=== PATIENT | male | born 1965 | race Caucasian/White ===

== ENCOUNTER 2025-02-05 11:59 | Observation (INO) | payer OTHER, SELFPAY ==
[2025-02-05] VITALS (28 sets, daily range): BP systolic 105–142; BP diastolic 55–75; PULSE 63–167; RESP 16–35; TEMP 36.7–36.9; O2SAT 97–100; BMI 24.0
--- NOTE | 2025-02-05 12:06 | DI.RAD.S_ITS ---
PROCEDURE: XR CHEST 1V INDICATIONS: Shortness of breath TECHNIQUE: One view of the chest was acquired. COMPARISON: None. FINDINGS: Surgical changes and devices: None. Lungs and pleura: Lungs are clear. No pleural effusions or pneumothorax. Mediastinum: Mediastinal contours appear normal. Heart size is normal. Bones and chest wall: No suspicious bony lesions. Overlying soft tissues appear unremarkable. IMPRESSION: No acute cardiopulmonary abnormality is seen. Dictated by: Lazaro Amaya M.D. on 02/05/2025 at 12:44 Approved by: Lazaro Amaya M.D. on 02/05/2025 at 12:44
--- NOTE | 2025-02-05 12:23 | EKG_ITS ---
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
[2025-02-05 12:26] LABS: Add Manual Diff / Slide Review NO; Basophils Absolute Auto 100 /uL (0-100); Basophils Percent Auto 0.3 % (0-2); Eosinophils Absolute Auto 0 /uL (0-450); Hematocrit 39.5 % (41-53); Lymphocytes Absolute Auto 1100 /uL (1100-4500); Lymphocytes Percent Auto 6.3 % (25-40); Mean Corpuscular HGB Conc 35.5 % (30-36); Mean Corpuscular Hemoglobin 35.1 PG (26-34); Mean Corpuscular Volume 99.1 fL (80-100); Monocytes Absolute Auto 1100 /uL (0-900); Monocytes Percent Auto 5.8 % (3-14); Neutrophils Absolute Auto 15900 /uL (1500-7000); Neutrophils Percent Auto 87.6 % (50-75); Platelet Count 197 X10^3/uL (150-400); Red Blood Cell Count 3.98 X10^6/uL (4.5-5.9); Red Cell Distribution Width 12.6 % (11.6-14.8); White Blood Cell Count 18.2 X10^3/uL (4.5-11.0)
[2025-02-05 12:32] LABS: INR 0.9 (0.9-1.3); Prothrombin Time 10.6 SECONDS (9.4-12.5)
[2025-02-05 12:37] LABS: Alanine Aminotransferase 36 IU/L (<50); Albumin 4.8 g/dL (3.5-5.0); Albumin Globulin Ratio 1.7 (1.0-2.8); Alkaline Phosphatase 66 U/L (38-126); Aspartate Aminotransferase 33 IU/L (17-59); BUN Creatinine Ratio 15.7 (6-22); Bilirubin Total 1.7 mg/dL (0.2-1.3); Blood Urea Nitrogen 65 mg/dL (9-20); Calcium 9.2 mg/dL (8.4-10.2); Carbon Dioxide 20 mmol/L (22-32); Chloride 93 mmol/L (98-107); Estimated Glomerular Filt Rate 16 mL/min (>60); Globulin 2.9 g/dL (1.7-4.1); Glucose 142 mg/dL (70-99); HEMOLYSIS < 15 (0-50); Potassium 4.8 mmol/L (3.4-5.1); Sodium 127 mmol/L (137-145); Total Protein 7.7 g/dL (6.3-8.2)
[2025-02-05 12:38] LABS: Lactate (Lactic Acid) 1.5 mmol/L (0.7-2.1)
[2025-02-05 12:49] LABS: NT-proBNP (BNP-Adult 18+) 162 pg/mL (<125); Troponin I < 0.012 ng/mL (0.01-0.034)
--- NOTE | 2025-02-05 13:07 | ED_ITS ---
HPI - SOB/Dyspnea <Gareth Toussaint, DO - Last Filed: 02/06/25 13:35> General Chief Complaint: Shortness of Breath/Dyspnea Stated Complaint: lightheaded, sob, sent by [place] Time Seen by Provider: 02/05/25 12:18 Source: patient Mode of arrival: Ambulatory Limitations: no limitations History of Present Illness HPI Narrative: 59-year-old gentleman history of high blood pressure, hld, and psoriasis presents with nonproductive cough dizziness and shortness of breath with exertion pressure washing started last week and then continued today came in for further evaluation today while working. He does say that his urine is dark yellow but he does keep hydrated. Patient denies syncope, fever, chills, body aches, nausea, vomiting, diarrhea, sorethroat, chest pain, abdominal pain, leg swelling. Other than what is stated 14 point review of system is negative. Related Data Allergies Allergy/AdvReac Type Severity Reaction Status Date / Time No Known Drug Allergies Allergy Verified 02/05/25 17:46 Review of Systems <Gareth Toussaint, DO - Last Filed: 02/06/25 13:35> Review of Systems ROS Unobtainable: All systems reviewed & are unremarkable except as noted in HPI and below Patient History <Gareth Toussaint, DO - Last Filed: 02/06/25 13:35> Social History household members: none Smoking Status: Former smoker Smoking Status: Former smoker tobacco type: cigarettes Alcohol type: beer Exam <Gareth Toussaint, DO - Last Filed: 02/06/25 13:35> Narrative Exam Narrative: GENERAL: [59] year old patient appears stated age. Well-developed patient, in mild distress. HEAD: Atraumatic. Normocephalic. EYES: Pupils equal round and reactive. Extraocular motions intact. No scleral icterus. No injection or drainage. ENT: Nose without bleeding, purulent drainage. Throat without erythema, tonsillar hypertrophy or exudate. Airway patent. NECK: Trachea midline. Non tender CARDIOVASCULAR: Regular rate and rhythm without murmurs, gallops, or rubs. RESPIRATORY: Clear to auscultation. Breath sounds equal bilaterally. No wheezes, rales, or rhonchi. GASTROINTESTINAL: Abdomen soft, non-tender, nondistended. EXTREMITIES: No edema or joint tenderness. BACK: Nontender without deformity or crepitance. No flank tenderness. NEURO: AOx3. GCS 15 nonfocal neuro exam SKIN: No rash or erythema of visible areas Initial Vital Signs Initial Vital Signs: Vital Signs Temperature 98.5 F 02/05/25 12:01 Pulse Rate 89 02/05/25 12:01 Respiratory Rate 18 02/05/25 12:01 Blood Pressure 121/55 L 02/05/25 12:01 Pulse Oximetry 99 02/05/25 12:01 Oxygen Delivery Method Room Air 02/05/25 12:01 <Indra Lopez MD - Last Filed: 02/06/25 05:09> Initial Vital Signs Initial Vital Signs: Vital Signs Temperature 98.5 F 02/05/25 12:01 Pulse Rate 89 02/05/25 12:01 Respiratory Rate 18 02/05/25 12:01 Blood Pressure 121/55 L 02/05/25 12:01 Pulse Oximetry 99 02/05/25 12:01 Oxygen Delivery Method Room Air 02/05/25 12:01 Course <Gareth Toussaint DO - Last Filed: 02/06/25 13:35> Orders Ordered: Acetaminophen (Acetaminophen 325 Mg Tablet) 650 mg PO Q6H PRN PRN Reason: Fever/Mild Pain (1-3) Heparin Sodium (Porcine) (Heparin 5,000 Unit/Ml Vial) 5,000 unit SUBCUT BID [facility] Last Admin: 02/06/25 08:19 Dose: 5,000 unit Documented By: Admin: 02/05/25 21:43 Dose: 5,000 unit Documented By: DYLON Sodium Chloride (Normal Saline 0.9%) 1,000 mls @ 150 mls/hr IV CONT FADY Last Infusion: 02/05/25 22:03 Dose: 150 mls/hr Documented By: Admin: 02/05/25 21:44 Dose: 150 mls/hr Documented By: Infusion: 02/05/25 15:52 Dose: Infused Documented By: Admin: 02/05/25 14:13 Dose: 150 mls/hr Documented By: ANGELINE Sodium Chloride (Normal Saline 0.9%) 1,000 mls @ 100 mls/hr IV CONT FADY Last Admin: 02/06/25 08:18 Dose: 100 mls/hr Documented By: Infusion: 02/06/25 07:02 Dose: Infused Documented By: Admin: 02/05/25 21:02 Dose: 100 mls/hr Documented By: CHRISTINA Naloxone HCl (Naloxone 0.4 Mg/Ml Vial) 0.2 mg IV Q2MIN PRN PRN Reason: Opiate Reversal Ondansetron HCl (Ondansetron 4 Mg/2 Ml Inj) 4 mg IV Q8HR PRN PRN Reason: Nausea And Vomiting Discontinued Medications Aspirin (Aspirin 81 Mg Chew Tab) 324 mg PO NOW ONE Stop: 02/05/25 13:09 Last Admin: 02/05/25 14:00 Dose: Not Given Documented By: ANGELINE Lactated Ringer's (Lactated Ringers) 1,000 mls @ 1,000 mls/hr IV BOLUS ONE Stop: 02/05/25 18:37 Last Infusion: 02/05/25 19:00 Dose: Infused Documented By: Admin: 02/05/25 17:47 Dose: 1,000 mls/hr Documented By: ANGELINE Vital Signs Vital signs: Vital Signs - 8 hr 02/05/25 13:30 02/05/25 13:30 02/05/25 13:43 Pulse Rate 79 90 Pulse Rate [Orthostatic Lying] Pulse Rate [Orthostatic Standing] Respiratory Rate 16 Blood Pressure 111/65 Blood Pressure [Orthostatic Lying] Blood Pressure [Orthostatic Sitting] Blood Pressure [Orthostatic Standing] Pulse Oximetry 99 98 Oxygen Delivery Method 02/05/25 13:43 02/05/25 14:00 02/05/25 14:00 Pulse Rate 79 Pulse Rate [Orthostatic Lying] Pulse Rate [Orthostatic Standing] Respiratory Rate Blood Pressure 134/71 120/56 L Blood Pressure [Orthostatic Lying] Blood Pressure [Orthostatic Sitting] Blood Pressure [Orthostatic Standing] Pulse Oximetry 99 Oxygen Delivery Method 02/05/25 14:30 02/05/25 14:30 02/05/25 14:47 Pulse Rate 78 Pulse Rate [Orthostatic Lying] Pulse Rate [Orthostatic Standing] Respiratory Rate Blood Pressure 120/60 124/65 Blood Pressure [Orthostatic Lying] Blood Pressure [Orthostatic Sitting] Blood Pressure [Orthostatic Standing] Pulse Oximetry 99 Oxygen Delivery Method 02/05/25 14:47 02/05/25 14:48 02/05/25 14:48 Pulse Rate 74 80 Pulse Rate [Orthostatic Lying] Pulse Rate [Orthostatic Standing] Respiratory Rate 25 H 23 Blood Pressure 125/72 Blood Pressure [Orthostatic Lying] Blood Pressure [Orthostatic Sitting] Blood Pressure [Orthostatic Standing] Pulse Oximetry 99 99 Oxygen Delivery Method 02/05/25 14:49 02/05/25 14:49 02/05/25 14:51 Pulse Rate 90 Pulse Rate [Orthostatic Lying] 74 Pulse Rate [Orthostatic Standing] 79 Respiratory Rate 25 H Blood Pressure 111/59 L Blood Pressure [Orthostatic Lying] 124/65 Blood Pressure [Orthostatic Sitting] 125/72 Blood Pressure [Orthostatic Standing] 111/59 L Pulse Oximetry 99 Oxygen Delivery Method 02/05/25 15:00 02/05/25 15:00 02/05/25 15:30 Pulse Rate 77 74 Pulse Rate [Orthostatic Lying] Pulse Rate [Orthostatic Standing] Respiratory Rate 25 H 22 Blood Pressure 123/70 Blood Pressure [Orthostatic Lying] Blood Pressure [Orthostatic Sitting] Blood Pressure [Orthostatic Standing] Pulse Oximetry 99 99 Oxygen Delivery Method 02/05/25 16:00 02/05/25 16:37 02/05/25 16:39 Pulse Rate 75 81 78 Pulse Rate [Orthostatic Lying] Pulse Rate [Orthostatic Standing] Respiratory Rate 35 H 27 H 17 Blood Pressure Blood Pressure [Orthostatic Lying] Blood Pressure [Orthostatic Sitting] Blood Pressure [Orthostatic Standing] Pulse Oximetry 99 99 99 Oxygen Delivery Method 02/05/25 16:39 02/05/25 17:00 02/05/25 17:00 Pulse Rate 74 Pulse Rate [Orthostatic Lying] Pulse Rate [Orthostatic Standing] Respiratory Rate 35 H Blood Pressure 127/71 126/68 Blood Pressure [Orthostatic Lying] Blood Pressure [Orthostatic Sitting] Blood Pressure [Orthostatic Standing] Pulse Oximetry 100 Oxygen Delivery Method 02/05/25 17:30 02/05/25 17:30 02/05/25 18:00 Pulse Rate 78 69 Pulse Rate [Orthostatic Lying] Pulse Rate [Orthostatic Standing] Respiratory Rate 30 H 19 Blood Pressure 142/70 H Blood Pressure [Orthostatic Lying] Blood Pressure [Orthostatic Sitting] Blood Pressure [Orthostatic Standing] Pulse Oximetry 99 100 Oxygen Delivery Method Room Air 02/05/25 18:00 02/05/25 18:30 02/05/25 19:00 Pulse Rate 79 92 H Pulse Rate [Orthostatic Lying] Pulse Rate [Orthostatic Standing] Respiratory Rate 18 20 Blood Pressure 139/75 Blood Pressure [Orthostatic Lying] Blood Pressure [Orthostatic Sitting] Blood Pressure [Orthostatic Standing] Pulse Oximetry Oxygen Delivery Method 02/05/25 19:30 Pulse Rate 88 Pulse Rate [Orthostatic Lying] Pulse Rate [Orthostatic Standing] Respiratory Rate 19 Blood Pressure Blood Pressure [Orthostatic Lying] Blood Pressure [Orthostatic Sitting] Blood Pressure [Orthostatic Standing] Pulse Oximetry Oxygen Delivery Method <Indra Lopez MD - Last Filed: 02/06/25 05:09> Orders Ordered: Acetaminophen (Acetaminophen 325 Mg Tablet) 650 mg PO Q6H PRN PRN Reason: Fever/Mild Pain (1-3) Heparin Sodium (Porcine) (Heparin 5,000 Unit/Ml Vial) 5,000 unit SUBCUT BID [facility] Last Admin: 02/06/25 08:19 Dose: 5,000 unit Documented By: Admin: 02/05/25 21:43 Dose: 5,000 unit Documented By: DYLON Sodium Chloride (Normal Saline 0.9%) 1,000 mls @ 150 mls/hr IV CONT [facility] Last Infusion: 02/05/25 22:03 Dose: 150 mls/hr Documented By: Admin: 02/05/25 21:44 Dose: 150 mls/hr Documented By: Infusion: 02/05/25 15:52 Dose: Infused Documented By: Admin: 02/05/25 14:13 Dose: 150 mls/hr Documented By: ANGELINE Sodium Chloride (Normal Saline 0.9%) 1,000 mls @ 100 mls/hr IV CONT [facility] Last Admin: 02/06/25 08:18 Dose: 100 mls/hr Documented By: Infusion: 02/06/25 07:02 Dose: Infused Documented By: Admin: 02/05/25 21:02 Dose: 100 mls/hr Documented By: CHRISTINA Naloxone HCl (Naloxone 0.4 Mg/Ml Vial) 0.2 mg IV Q2MIN PRN PRN Reason: Opiate Reversal Ondansetron HCl (Ondansetron 4 Mg/2 Ml Inj) 4 mg IV Q8HR PRN PRN Reason: Nausea And Vomiting Discontinued Medications Aspirin (Aspirin 81 Mg Chew Tab) 324 mg PO NOW ONE Stop: 02/05/25 13:09 Last Admin: 02/05/25 14:00 Dose: Not Given Documented By: ANGELINE Lactated Ringer's (Lactated Ringers) 1,000 mls @ 1,000 mls/hr IV BOLUS ONE Stop: 02/05/25 18:37 Last Infusion: 02/05/25 19:00 Dose: Infused Documented By: Admin: 02/05/25 17:47 Dose: 1,000 mls/hr Documented By: ANGELINE Vital Signs Vital signs: Vital Signs - 8 hr 02/05/25 13:30 02/05/25 13:30 02/05/25 13:43 Pulse Rate 79 90 Pulse Rate [Orthostatic Lying] Pulse Rate [Orthostatic Standing] Respiratory Rate 16 Blood Pressure 111/65 Blood Pressure [Orthostatic Lying] Blood Pressure [Orthostatic Sitting] Blood Pressure [Orthostatic Standing] Pulse Oximetry 99 98 Oxygen Delivery Method 02/05/25 13:43 02/05/25 14:00 02/05/25 14:00 Pulse Rate 79 Pulse Rate [Orthostatic Lying] Pulse Rate [Orthostatic Standing] Respiratory Rate Blood Pressure 134/71 120/56 L Blood Pressure [Orthostatic Lying] Blood Pressure [Orthostatic Sitting] Blood Pressure [Orthostatic Standing] Pulse Oximetry 99 Oxygen Delivery Method 02/05/25 14:30 02/05/25 14:30 02/05/25 14:47 Pulse Rate 78 Pulse Rate [Orthostatic Lying] Pulse Rate [Orthostatic Standing] Respiratory Rate Blood Pressure 120/60 124/65 Blood Pressure [Orthostatic Lying] Blood Pressure [Orthostatic Sitting] Blood Pressure [Orthostatic Standing] Pulse Oximetry 99 Oxygen Delivery Method 02/05/25 14:47 02/05/25 14:48 02/05/25 14:48 Pulse Rate 74 80 Pulse Rate [Orthostatic Lying] Pulse Rate [Orthostatic Standing] Respiratory Rate 25 H 23 Blood Pressure 125/72 Blood Pressure [Orthostatic Lying] Blood Pressure [Orthostatic Sitting] Blood Pressure [Orthostatic Standing] Pulse Oximetry 99 99 Oxygen Delivery Method 02/05/25 14:49 02/05/25 14:49 02/05/25 14:51 Pulse Rate 90 Pulse Rate [Orthostatic Lying] 74 Pulse Rate [Orthostatic Standing] 79 Respiratory Rate 25 H Blood Pressure 111/59 L Blood Pressure [Orthostatic Lying] 124/65 Blood Pressure [Orthostatic Sitting] 125/72 Blood Pressure [Orthostatic Standing] 111/59 L Pulse Oximetry 99 Oxygen Delivery Method 02/05/25 15:00 02/05/25 15:00 02/05/25 15:30 Pulse Rate 77 74 Pulse Rate [Orthostatic Lying] Pulse Rate [Orthostatic Standing] Respiratory Rate 25 H 22 Blood Pressure 123/70 Blood Pressure [Orthostatic Lying] Blood Pressure [Orthostatic Sitting] Blood Pressure [Orthostatic Standing] Pulse Oximetry 99 99 Oxygen Delivery Method 02/05/25 16:00 02/05/25 16:37 02/05/25 16:39 Pulse Rate 75 81 78 Pulse Rate [Orthostatic Lying] Pulse Rate [Orthostatic Standing] Respiratory Rate 35 H 27 H 17 Blood Pressure Blood Pressure [Orthostatic Lying] Blood Pressure [Orthostatic Sitting] Blood Pressure [Orthostatic Standing] Pulse Oximetry 99 99 99 Oxygen Delivery Method 02/05/25 16:39 02/05/25 17:00 02/05/25 17:00 Pulse Rate 74 Pulse Rate [Orthostatic Lying] Pulse Rate [Orthostatic Standing] Respiratory Rate 35 H Blood Pressure 127/71 126/68 Blood Pressure [Orthostatic Lying] Blood Pressure [Orthostatic Sitting] Blood Pressure [Orthostatic Standing] Pulse Oximetry 100 Oxygen Delivery Method 02/05/25 17:30 02/05/25 17:30 02/05/25 18:00 Pulse Rate 78 69 Pulse Rate [Orthostatic Lying] Pulse Rate [Orthostatic Standing] Respiratory Rate 30 H 19 Blood Pressure 142/70 H Blood Pressure [Orthostatic Lying] Blood Pressure [Orthostatic Sitting] Blood Pressure [Orthostatic Standing] Pulse Oximetry 99 100 Oxygen Delivery Method Room Air 02/05/25 18:00 02/05/25 18:30 02/05/25 19:00 Pulse Rate 79 92 H Pulse Rate [Orthostatic Lying] Pulse Rate [Orthostatic Standing] Respiratory Rate 18 20 Blood Pressure 139/75 Blood Pressure [Orthostatic Lying] Blood Pressure [Orthostatic Sitting] Blood Pressure [Orthostatic Standing] Pulse Oximetry Oxygen Delivery Method 02/05/25 19:30 Pulse Rate 88 Pulse Rate [Orthostatic Lying] Pulse Rate [Orthostatic Standing] Respiratory Rate 19 Blood Pressure Blood Pressure [Orthostatic Lying] Blood Pressure [Orthostatic Sitting] Blood Pressure [Orthostatic Standing] Pulse Oximetry Oxygen Delivery Method MDM - SOB/Dyspnea <Gareth Toussaint, DO - Last Filed: 02/06/25 13:35> Lab Data 02/06/25 05:50 02/06/25 05:50 Labs: Lab Results 02/05/25 02/05/25 02/05/25 Range/Units 12:18 14:10 14:30 WBC 18.2 H (4.5-11.0) X10^3/uL RBC 3.98 L (4.5-5.9) X10^6/uL Hgb 14.0 (13.5-17.5) g/dL Hct 39.5 L (41-53) % MCV 99.1 (80-100) fL MCH 35.1 H (26-34) PG MCHC 35.5 (30-36) % RDW 12.6 (11.6-14.8) % Plt Count 197 (150-400) X10^3/uL Neut % (Auto) 87.6 H (50-75) % Lymph % (Auto) 6.3 L (25-40) % [place] % (Auto) 5.8 (3-14) % Eos % (Auto) 0.0 L (2-4) % Baso % (Auto) 0.3 (0-2) % Neut # (Auto) 82329 H (5923-6002) /uL Lymph # (Auto) 1100 (4406-9900) /uL [place] # (Auto) 1100 H (0-900) /uL Eos # (Auto) 0 (0-450) /uL Baso # (Auto) 100 (0-100) /uL PT 10.6 (9.4-12.5) SECONDS INR 0.9 (0.9-1.3) Sodium 127 L (137-145) mmol/L Potassium 4.8 (3.4-5.1) mmol/L Chloride 93 L (98-107) mmol/L Carbon Dioxide 20 L (22-32) mmol/L BUN 65 H (9-20) mg/dL Creatinine 4.15 H (0.66-1.25) mg/dL Estimated GFR 16 L (>60) mL/min BUN/Creatinine Ratio 15.7 (6-22) Glucose 142 H (70-99) mg/dL Lactate 1.5 (0.7-2.1) mmol/L Calcium 9.2 (8.4-10.2) mg/dL Total Bilirubin 1.7 H (0.2-1.3) mg/dL AST 33 (17-59) IU/L ALT 36 (<50) IU/L Alkaline Phosphatase 66 (38-126) U/L Total Creatine Kinase 44 L (55-170) U/L Troponin I < 0.012 (0.01-0.034) ng/mL NT-Pro-B Natriuret Pep 162 H (<125) pg/mL Total Protein 7.7 (6.3-8.2) g/dL Albumin 4.8 (3.5-5.0) g/dL Globulin 2.9 (1.7-4.1) g/dL Albumin/Globulin Ratio 1.7 (1.0-2.8) Lipase 180 (23-300) U/L Procalcitonin 0.246 (<0.5) ng/mL Urine RBC 0-1/hpf (0-5/HPF) Urine WBC None seen (0-5/HPF) Ur Squamous Epith Cells 0-1 /hpf (0-5/HPF) Urine Bacteria None seen (None) Ur Culture Indicated? Cult not indicated Vol Urine Centrifuged 10ml (spun) SARS-CoV-2 (PCR) Negative (Negative) Influenza A (RT-PCR) Flu a negative (NEGATIVE) Influenza B (RT-PCR) Flu b negative (NEGATIVE) RSV (PCR) Negative (Negative) 02/05/25 Range/Units 18:50 WBC (4.5-11.0) X10^3/uL RBC (4.5-5.9) X10^6/uL Hgb (13.5-17.5) g/dL Hct (41-53) % MCV (80-100) fL MCH (26-34) PG MCHC (30-36) % RDW (11.6-14.8) % Plt Count (150-400) X10^3/uL Neut % (Auto) (50-75) % Lymph % (Auto) (25-40) % [place] % (Auto) (3-14) % Eos % (Auto) (2-4) % Baso % (Auto) (0-2) % Neut # (Auto) (0432-6454) /uL Lymph # (Auto) (3436-5334) /uL [place] # (Auto) (0-900) /uL Eos # (Auto) (0-450) /uL Baso # (Auto) (0-100) /uL PT (9.4-12.5) SECONDS INR (0.9-1.3) Sodium (137-145) mmol/L Potassium (3.4-5.1) mmol/L Chloride (98-107) mmol/L Carbon Dioxide (22-32) mmol/L BUN 57 H (9-20) mg/dL Creatinine 2.86 H (0.66-1.25) mg/dL Estimated GFR 24 L (>60) mL/min BUN/Creatinine Ratio 19.9 (6-22) Glucose (70-99) mg/dL Lactate (0.7-2.1) mmol/L Calcium (8.4-10.2) mg/dL Total Bilirubin (0.2-1.3) mg/dL AST (17-59) IU/L ALT (<50) IU/L Alkaline Phosphatase (38-126) U/L Total Creatine Kinase (55-170) U/L Troponin I (0.01-0.034) ng/mL NT-Pro-B Natriuret Pep (<125) pg/mL Total Protein (6.3-8.2) g/dL Albumin (3.5-5.0) g/dL Globulin (1.7-4.1) g/dL Albumin/Globulin Ratio (1.0-2.8) Lipase (23-300) U/L Procalcitonin (<0.5) ng/mL Urine RBC (0-5/HPF) Urine WBC (0-5/HPF) Ur Squamous Epith Cells (0-5/HPF) Urine Bacteria (None) Ur Culture Indicated? Vol Urine Centrifuged SARS-CoV-2 (PCR) (Negative) Influenza A (RT-PCR) (NEGATIVE) Influenza B (RT-PCR) (NEGATIVE) RSV (PCR) (Negative) Urine Dip Bedside Urine Glucose 1000 mg/dl Bedside Urine Bilirubin - Negative Bedside Urine Ketone - Negative Urine Specific [place] 1.005 Bedside Urine Occult Blood + Bedside Urine pH 6.0 Bedside Urine Protein - Negative Bedside Urine Urobilinogen - Negative Bedside Urine Nitrite - Negative Bedside Urine Leukocytes - Negative Esterase Imaging Data CT scan - abdomen/pelvis: Radiologist's Impression: : 1965 Acct:[id number] Age/Sex: 59 / M Date of Service: 02/05/25 Loc: ED Accession Number: [id number] Procedure: CT abdomen pelvis wo con Ordering Provider: Gareth Toussaint D.O. PROCEDURE: CT ABDOMEN PELVIS WO CON INDICATIONS: light headed TECHNIQUE: Axial sections were acquired from the lung bases to the pubic symphysis. Coronal and sagittal reformats were performed. For radiation dose reduction, the following was used: automated exposure control, adjustment of mA and/or kV according to patient size. COMPARISON: None. FINDINGS: Image quality: Diagnostic. Lower Chest: No significant findings. URINARY: Right Kidney: No stones or hydronephrosis. Right Ureter: No hydroureter. Left Kidney: No stones or hydronephrosis. Left Ureter: No hydroureter. Bladder: Normal wall thickness. No stones. ABDOMEN: Liver: No contour-deforming solid mass. Gallbladder: No radiopaque gallstones or wall thickening. Biliary ducts: No biliary dilation. Pancreas: No ductal dilation. Spleen: Size is within normal limits. Adrenal Glands: No adrenal nodules. Stomach and Bowel: Normal colonic caliber, without significant wall thickening. Mild diverticulosis without CT evidence of acute diverticulitis. Normal appendix. Peritoneum: No abnormal intraperitoneal fluid. No free air. Ventral Wall: No hernia. Abdominal Nodes: No enlarged retroperitoneal or mesenteric lymph nodes. Vessels: Aorta and inferior vena cava are normal in size. PELVIS: Pelvic Organs: Unremarkable. Pelvic Nodes: Unremarkable. Miscellaneous: No inguinal hernias are seen. Bones: Lumbar degenerative change. No aggressive osseous process. IMPRESSION: No acute abdominal process. Mild diverticulosis. Lumbar degenerative change Dictated by: Lazaro Amaya M.D. on 02/05/2025 at 16:49 Approved by: Lazaro Amaya M.D. on 02/05/2025 at 1 ECG Data Interpretation: NSR HR 77 TN 180 QRS [address]-t wave change No previous ekg to compare MDM Narrative Medical decision making narrative: All lab work vital signs nurse triage note medication list CT scan and previous ER visits in outpatient clinic visit note reviewed today. Patient given lactated Ringer's 1 L bolus x2 pending repeat BUN creatinine. Differential diagnosis includes heart failure, electrolyte derangement, PE, pneumonia, hydronephrosis, kidney stone. Case discussed with our in-house hospitalist who felt patient needed higher level care including Nephrology. Case signed out to Dr. Lopez at shift change pending final disposition. <Indra Lopez MD - Last Filed: 02/06/25 05:09> Lab Data Labs: Lab Results 02/05/25 02/05/25 02/05/25 Range/Units 12:18 14:10 14:30 WBC 18.2 H (4.5-11.0) X10^3/uL RBC 3.98 L (4.5-5.9) X10^6/uL Hgb 14.0 (13.5-17.5) g/dL Hct 39.5 L (41-53) % MCV 99.1 (80-100) fL MCH 35.1 H (26-34) PG MCHC 35.5 (30-36) % RDW 12.6 (11.6-14.8) % Plt Count 197 (150-400) X10^3/uL Neut % (Auto) 87.6 H (50-75) % Lymph % (Auto) 6.3 L (25-40) % [place] % (Auto) 5.8 (3-14) % Eos % (Auto) 0.0 L (2-4) % Baso % (Auto) 0.3 (0-2) % Neut # (Auto) 47138 H (9205-5614) /uL Lymph # (Auto) 1100 (1170-1500) /uL [place] # (Auto) 1100 H (0-900) /uL Eos # (Auto) 0 (0-450) /uL Baso # (Auto) 100 (0-100) /uL PT 10.6 (9.4-12.5) SECONDS INR 0.9 (0.9-1.3) Sodium 127 L (137-145) mmol/L Potassium 4.8 (3.4-5.1) mmol/L Chloride 93 L (98-107) mmol/L Carbon Dioxide 20 L (22-32) mmol/L BUN 65 H (9-20) mg/dL Creatinine 4.15 H (0.66-1.25) mg/dL Estimated GFR 16 L (>60) mL/min BUN/Creatinine Ratio 15.7 (6-22) Glucose 142 H (70-99) mg/dL Lactate 1.5 (0.7-2.1) mmol/L Calcium 9.2 (8.4-10.2) mg/dL Total Bilirubin 1.7 H (0.2-1.3) mg/dL AST 33 (17-59) IU/L ALT 36 (<50) IU/L Alkaline Phosphatase 66 (38-126) U/L Total Creatine Kinase 44 L (55-170) U/L Troponin I < 0.012 (0.01-0.034) ng/mL NT-Pro-B Natriuret Pep 162 H (<125) pg/mL Total Protein 7.7 (6.3-8.2) g/dL Albumin 4.8 (3.5-5.0) g/dL Globulin 2.9 (1.7-4.1) g/dL Albumin/Globulin Ratio 1.7 (1.0-2.8) Lipase 180 (23-300) U/L Procalcitonin 0.246 (<0.5) ng/mL Urine RBC 0-1/hpf (0-5/HPF) Urine WBC None seen (0-5/HPF) Ur Squamous Epith Cells 0-1 /hpf (0-5/HPF) Urine Bacteria None seen (None) Ur Culture Indicated? Cult not indicated Vol Urine Centrifuged 10ml (spun) SARS-CoV-2 (PCR) Negative (Negative) Influenza A (RT-PCR) Flu a negative (NEGATIVE) Influenza B (RT-PCR) Flu b negative (NEGATIVE) RSV (PCR) Negative (Negative) 02/05/25 Range/Units 18:50 WBC (4.5-11.0) X10^3/uL RBC (4.5-5.9) X10^6/uL Hgb (13.5-17.5) g/dL Hct (41-53) % MCV (80-100) fL MCH (26-34) PG MCHC (30-36) % RDW (11.6-14.8) % Plt Count (150-400) X10^3/uL Neut % (Auto) (50-75) % Lymph % (Auto) (25-40) % [place] % (Auto) (3-14) % Eos % (Auto) (2-4) % Baso % (Auto) (0-2) % Neut # (Auto) (7111-6551) /uL Lymph # (Auto) (8714-5368) /uL [place] # (Auto) (0-900) /uL Eos # (Auto) (0-450) /uL Baso # (Auto) (0-100) /uL PT (9.4-12.5) SECONDS INR (0.9-1.3) Sodium (137-145) mmol/L Potassium (3.4-5.1) mmol/L Chloride (98-107) mmol/L Carbon Dioxide (22-32) mmol/L BUN 57 H (9-20) mg/dL Creatinine 2.86 H (0.66-1.25) mg/dL Estimated GFR 24 L (>60) mL/min BUN/Creatinine Ratio 19.9 (6-22) Glucose (70-99) mg/dL Lactate (0.7-2.1) mmol/L Calcium (8.4-10.2) mg/dL Total Bilirubin (0.2-1.3) mg/dL AST (17-59) IU/L ALT (<50) IU/L Alkaline Phosphatase (38-126) U/L Total Creatine Kinase (55-170) U/L Troponin I (0.01-0.034) ng/mL NT-Pro-B Natriuret Pep (<125) pg/mL Total Protein (6.3-8.2) g/dL Albumin (3.5-5.0) g/dL Globulin (1.7-4.1) g/dL Albumin/Globulin Ratio (1.0-2.8) Lipase (23-300) U/L Procalcitonin (<0.5) ng/mL Urine RBC (0-5/HPF) Urine WBC (0-5/HPF) Ur Squamous Epith Cells (0-5/HPF) Urine Bacteria (None) Ur Culture Indicated? Vol Urine Centrifuged SARS-CoV-2 (PCR) (Negative) Influenza A (RT-PCR) (NEGATIVE) Influenza B (RT-PCR) (NEGATIVE) RSV (PCR) (Negative) Urine Dip Bedside Urine Glucose 1000 mg/dl Bedside Urine Bilirubin - Negative Bedside Urine Ketone - Negative Urine Specific Lowes 1.005 Bedside Urine Occult Blood + Bedside Urine pH 6.0 Bedside Urine Protein - Negative Bedside Urine Urobilinogen - Negative Bedside Urine Nitrite - Negative Bedside Urine Leukocytes - Negative Esterase MDM Narrative Medical decision making narrative: All lab work vital signs nurse triage note medication list CT scan and previous ER visits in outpatient clinic visit note reviewed today. Patient given lactated Ringer's 1 L bolus x2 pending repeat BUN creatinine. Differential diagnosis includes heart failure, electrolyte derangement, PE, pneumonia, hydronephrosis, kidney stone. Case discussed with our in-house hospitalist who felt patient needed higher level care including Nephrology. Case signed out to Dr. Lopez at shift change pending final disposition. 02/05/25, 1829, John. Sign-out from Dr. Dobbs. 59-year-old male with recent exertional dyspnea, labs sent showing WBC 18 with creatinine of 4 with no comparison labs, CT abdomen and pelvis showed no obstructive uropathy or other acute process, no Nephrology available here, hospitalist here recommends transfer to nephrology capable facility. UA negative. CXR negative. BNP negative. Troponin negative. EKG without obvious ischemic changes normal sinus rhythm. CPK normal. No beds [facility]. Dr Dobbs spoke with [facility] transfer center, awaiting call back. Assumed care. 1999, call back from [facility], their hospitalist apparently declined, they are full no beds, he has not established with [facility]. We will contact [facility] for alternate transfer options to Nephrology capable facilities. Repeat BNP shows improved BUN and creatinine, 65/4.15 decreased to 57/2.86, improved. Likely does not need transfer for Nephrology at this time, improving renal function. Urinalysis was negative, no mention of any urianry casts, and no pyuria or hematuria. CT Abdomen Pelvis imaging noncontrast showed no obstructive uropathy or renal lesions, no acute changes noted. We will discuss with hospitalist regarding admission. 2044, case discussed with hospitalist Dr Arias who accepts patient for admission Discharge Plan Departure Patient Disposition: Admitted As Inpatient Clinical Impression: HI (acute kidney injury), Leukocytosis Admit Date/Time: 02/05/25 20:56 Admit Provider: Db Arias
[2025-02-05] MEDS: SODIUM CHLORIDE 0.9% 1,000 ML 150 ML IV ×2 (14:13→21:44)
[2025-02-05 15:04] LABS: Lipase 180 U/L (23-300)
[2025-02-05 15:05] LABS: Procalcitonin 0.246 ng/mL (<0.5)
[2025-02-05 15:15] LABS: Influenza A - CEPHEID Flu A NEGATIVE (NEGATIVE); Influenza B - CEPHEID Flu B NEGATIVE (NEGATIVE); Respiratory Syncytial Virus Negative (Negative)
[2025-02-05 15:22] LABS: Bacteria Urine None Seen; Culture Indicated Urine Cult Not Indicated; RBC Urine 0-1/HPF (0-5/HPF); Squamous Epithelial Cell Urine 0-1 /HPF (0-5/HPF); Urine Volume 10mL (spun); WBC Urine None Seen (0-5/HPF)
[2025-02-05 15:31] LABS: COVID-19 CEPHEID 4-PLEX PCR Negative (Negative)
--- NOTE | 2025-02-05 16:05 | PM.CALLCOV.1 ---
Call Coverage Note Note Date of Patient Contact: 02/05/25 Narrative of Care Provided: 59 M with PMH of HTN who presents with shortness of breath and sensation of light headedness for 1 week. Medicine being asked about admission given his creatinine of >4. Patient needs further evaluation to help determine underlying etiology at this time prior to acceptance at [facility]. However, given his dyspnea on presentation and creatinine of 4 already he would be better served at a facility with nephrology consultation available. Recommend initial evaluation CT without contrast or ultrasound to rule out obstructive etiology, CK level formal UA with ability to detect blood (for myoglobinuria and possible rhabdo), and repeat BMP after fluids. As stated above at this time would recommend transfer to higher level facility. If an underlying explanation for his acute renal failure is more evident and can be managed at [facility], can discuss admission here in the near future. Home meds: lisinopril 40 mg, HCTZ 12.5 mg daily
[2025-02-05 16:13] LABS: Creatine Kinase 44 U/L (55-170)
--- NOTE | 2025-02-05 16:38 | DI.CT.S_ITS ---
PROCEDURE: CT ABDOMEN PELVIS WO CON INDICATIONS: light headed TECHNIQUE: Axial sections were acquired from the lung bases to the pubic symphysis. Coronal and sagittal reformats were performed. For radiation dose reduction, the following was used: automated exposure control, adjustment of mA and/or kV according to patient size. COMPARISON: None. FINDINGS: Image quality: Diagnostic. Lower Chest: No significant findings. URINARY: Right Kidney: No stones or hydronephrosis. Right Ureter: No hydroureter. Left Kidney: No stones or hydronephrosis. Left Ureter: No hydroureter. Bladder: Normal wall thickness. No stones. ABDOMEN: Liver: No contour-deforming solid mass. Gallbladder: No radiopaque gallstones or wall thickening. Biliary ducts: No biliary dilation. Pancreas: No ductal dilation. Spleen: Size is within normal limits. Adrenal Glands: No adrenal nodules. Stomach and Bowel: Normal colonic caliber, without significant wall thickening. Mild diverticulosis without CT evidence of acute diverticulitis. Normal appendix. Peritoneum: No abnormal intraperitoneal fluid. No free air. Ventral Wall: No hernia. Abdominal Nodes: No enlarged retroperitoneal or mesenteric lymph nodes. Vessels: Aorta and inferior vena cava are normal in size. PELVIS: Pelvic Organs: Unremarkable. Pelvic Nodes: Unremarkable. Miscellaneous: No inguinal hernias are seen. Bones: Lumbar degenerative change. No aggressive osseous process. IMPRESSION: No acute abdominal process. Mild diverticulosis. Lumbar degenerative change Dictated by: Lazaro Amaya M.D. on 02/05/2025 at 16:49 Approved by: Lazaro Amaya M.D. on 02/05/2025 at 16:51
[2025-02-05] MEDS: LACTATED RINGERS 1,000 ML 1000 ML IV (17:47)
[2025-02-05 19:27] LABS: BUN Creatinine Ratio 19.9 (6-22); Blood Urea Nitrogen 57 mg/dL (9-20); Estimated Glomerular Filt Rate 24 mL/min (>60)
[2025-02-05] MEDS: SODIUM CHLORIDE 0.9% 1,000 ML 100 ML IV (21:02)
[2025-02-05] MEDS: HEPARIN 5,000 UNIT/ML VIAL 5000 UNIT SUBCUT (21:43)
--- NOTE | 2025-02-06 03:58 | P.HP_ITS ---
History of Present Illness History of Present Illness Chief complaint: lightheaded, sob, sent by [place] Narrative: 59-year-old male with past medical history of hypertension, hyperlipidemia, psoriasis and former tobacco abuse presents with complaint of shortness of breath. Per the patient's report, the patient started to notice increased shortness of breath with a dry cough that started about a week ago. The patient also has some light headedness with his cough and shortness of breath but denies any focal weakness. The patient states that he noticed his urine is darker and that he admits to not be drinking enough fluid. The patient otherwise denies any hematuria, dysuria, fever, chills, nausea, vomiting, diarrhea, chest pain, shortness of breath or syncope. The patient also denies any leg swelling or abdominal pain. The patient denies any known history of kidney disease or diabetes. In our emergency room, the patient was hemodynamically stable. However labs shows a creatinine of 4.15. WBC was 18,000. UA however was negative and normal. Chest x-ray was also clear. The patient was saturating very well on room air without any respiratory distress per ER physician. CT abdomen and pelvic shows no signs of hydronephrosis or renal stones. The patient was still making urine in our ER. After 1 L of fluid repeat creatinine was 2.8. Lactic acid is normal at 1.5. Viral respiratory panel were negative. Due to improvement of creatinine renal function after IV fluid our ER physician requested for admission. [facility] Social History household members: none Smoking Status: Former smoker Meds Home Medications and Allergies Home Medications Medication Instructions Recorded Confirmed Type hydrochlorothiazide 12.5 mg tablet 12.5 mg PO DAILY 02/05/25 02/05/25 History lisinopril 40 mg tablet 40 mg PO DAILY 02/05/25 02/05/25 History Allergies Allergy/AdvReac Type Severity Reaction Status Date / Time No Known Drug Allergies Allergy Verified 02/05/25 17:46 Review of Systems Review of Systems ROS: Yes All systems reviewed with the patient and are negative except as otherwise documented Exam Vital Signs (past 8 hours): - 02/05/25 20:10 02/05/25 20:11 02/05/25 20:11 Temperature Pulse Rate 80 79 Respiratory Rate 25 H 21 Blood Pressure 112/59 L Pulse Oximetry 98 97 Oxygen Delivery Method Oxygen Flow Rate 02/05/25 20:30 02/05/25 20:30 02/05/25 21:00 Temperature Pulse Rate 75 69 Respiratory Rate 18 21 Blood Pressure 110/63 Pulse Oximetry 97 99 Oxygen Delivery Method Room Air Room Air Oxygen Flow Rate 02/05/25 21:00 02/05/25 21:30 02/05/25 21:30 Temperature Pulse Rate 167 H Respiratory Rate 29 H Blood Pressure 112/66 111/58 L Pulse Oximetry 98 Oxygen Delivery Method Oxygen Flow Rate 02/05/25 22:10 Temperature 98.1 F Pulse Rate 63 Respiratory Rate 20 Blood Pressure 118/74 Pulse Oximetry 97 Oxygen Delivery Method Oxygen Flow Rate 0 Oxygen Delivery Method Room Air Oxygen Flow Rate 0 Narrative Exam Narrative: Physical Exam: GENERAL: The patient is not in any acute distressed. Awake and alert. HEENT: Nonicteric sclerae, PERRLA, EOMI. Oropharynx clear. Moist mucous membranes. Conjunctivae appear well perfused. HEART: Regular rate and rhythm without murmurs. No lower extremities edema. LUNGS: Clear to auscultation bilaterally. No wheezing, crackles or rhonchi ABDOMEN: Soft, positive bowel sounds, nontender. SKIN: No rash, no excessive bruising, petechiae, or purpura. NEUROLOGIC: AxO x 3. Cranial nerves II-XII intact without motor/sensory deficit. Objective Labs 02/05/25 12:18 02/05/25 18:50 Labs: Laboratory Results - last 24 hr 02/05/25 02/05/25 02/05/25 12:18 14:10 14:30 WBC 18.2 H RBC 3.98 L Hgb 14.0 Hct 39.5 L MCV 99.1 MCH 35.1 H MCHC 35.5 RDW 12.6 Plt Count 197 Neut % (Auto) 87.6 H Lymph % (Auto) 6.3 L [place] % (Auto) 5.8 Eos % (Auto) 0.0 L Baso % (Auto) 0.3 Neut # (Auto) 66459 H Lymph # (Auto) 1100 [place] # (Auto) 1100 H Eos # (Auto) 0 Baso # (Auto) 100 PT 10.6 INR 0.9 Sodium 127 L Potassium 4.8 Chloride 93 L Carbon Dioxide 20 L BUN 65 H Creatinine 4.15 H Estimated GFR 16 L BUN/Creatinine Ratio 15.7 Glucose 142 H Lactate 1.5 Calcium 9.2 Total Bilirubin 1.7 H AST 33 ALT 36 Alkaline Phosphatase 66 Total Creatine Kinase 44 L Troponin I < 0.012 NT-Pro-B Natriuret Pep 162 H Total Protein 7.7 Albumin 4.8 Globulin 2.9 Albumin/Globulin Ratio 1.7 Lipase 180 Procalcitonin 0.246 Urine RBC 0-1/hpf Urine WBC None seen Ur Squamous Epith Cells 0-1 /hpf Urine Bacteria None seen Ur Culture Indicated? Cult not indicated Vol Urine Centrifuged 10ml (spun) SARS-CoV-2 (PCR) Negative Influenza A (RT-PCR) Flu a negative Influenza B (RT-PCR) Flu b negative RSV (PCR) Negative 02/05/25 18:50 WBC RBC Hgb Hct MCV MCH MCHC RDW Plt Count Neut % (Auto) Lymph % (Auto) [place] % (Auto) Eos % (Auto) Baso % (Auto) Neut # (Auto) Lymph # (Auto) [place] # (Auto) Eos # (Auto) Baso # (Auto) PT INR Sodium Potassium Chloride Carbon Dioxide BUN 57 H Creatinine 2.86 H Estimated GFR 24 L BUN/Creatinine Ratio 19.9 Glucose Lactate Calcium Total Bilirubin AST ALT Alkaline Phosphatase Total Creatine Kinase Troponin I NT-Pro-B Natriuret Pep Total Protein Albumin Globulin Albumin/Globulin Ratio Lipase Procalcitonin Urine RBC Urine WBC Ur Squamous Epith Cells Urine Bacteria Ur Culture Indicated? Vol Urine Centrifuged SARS-CoV-2 (PCR) Influenza A (RT-PCR) Influenza B (RT-PCR) RSV (PCR) Assessment & Plan Assessment & Plan narrative: HI. Admit the patient to medical floor as inpatient. Of note initial creatinine was 4.1 but after 1 L of fluid improved to 2.8. Patient is still making good urine. UA shows no sign of blood in the urine or any casts. No signs of infection. Will continue IV fluid and monitor renal function. Note CT scan also shows no sign of hydronephrosis or kidney stones. Likely cause is from dehydration. However it is unclear what patient's baseline creatinine is. Consider getting outpatient lab report in the morning. Leukocytosis. Again no clear etiology. Patient's chest x-ray abdominal CT and UA are all negative for any infection. Patient does not have any diarrhea. Patient is also afebrile and lactic acid is normal. Will monitor for now and repeat WBC in the morning. Hypertension. Monitor blood pressure and resume home medication accordingly. Hyperlipidemia. Resume home statin. CODE STATUS full code. DVT prophylaxis heparin subcu. Disposition likely home in 2 days. - As the provider of this telehealth evaluation, requested by the patient's evaluating physician, I attest that I introduced myself to the patient, provided my credentials and determined that telemedicine via a real-time, 2 way interactive audio and video platform is an appropriate and effective means of providing this service. - I reviewed the patient's chart and had a discussion with the member of the patient's treatment team. - The patient and I mutually agreed with continuation of this evaluation via telemedicine. The patient consented for the telemedicine evaluation. - This virtual encounter was taken place from [place]. The encounter was approximately 35 minutes. The nurse was present during the entire time of the encounter and was able to move the stethoscope in appropriate directions. The patient was evaluated at [facility]. Time-Based Coding :: [TOTAL MINUTES] spent with patient and on the chart (including review of chart, obtaining history, exam, reviewing outside data, placing orders, documenting exam and treatment plan, and counseling patient) on [DATE].
[2025-02-06 04:00] VITALS: BP 112/64; PULSE 65; RESP 16; TEMP 36.4; O2SAT 100
[2025-02-06 06:17] LABS: Add Manual Diff / Slide Review NO; Basophils Absolute Auto 0 /uL (0-100); Basophils Percent Auto 0.6 % (0-2); Eosinophils Absolute Auto 100 /uL (0-450); Eosinophils Percent Auto 1.2 % (2-4); Hemoglobin 12.1 g/dL (13.5-17.5); Lymphocytes Absolute Auto 1600 /uL (1100-4500); Lymphocytes Percent Auto 29.5 % (25-40); Mean Corpuscular HGB Conc 35.5 % (30-36); Mean Corpuscular Hemoglobin 35.9 PG (26-34); Mean Corpuscular Volume 101.1 fL (80-100); Monocytes Absolute Auto 400 /uL (0-900); Monocytes Percent Auto 7.9 % (3-14); Neutrophils Absolute Auto 3200 /uL (1500-7000); Neutrophils Percent Auto 60.8 % (50-75); Platelet Count 137 X10^3/uL (150-400); Red Blood Cell Count 3.36 X10^6/uL (4.5-5.9); Red Cell Distribution Width 12.7 % (11.6-14.8); White Blood Cell Count 5.3 X10^3/uL (4.5-11.0)
[2025-02-06 06:40] LABS: BUN Creatinine Ratio 26.1 (6-22); Blood Urea Nitrogen 46 mg/dL (9-20); Calcium 8.5 mg/dL (8.4-10.2); Carbon Dioxide 23 mmol/L (22-32); Chloride 105 mmol/L (98-107); Estimated Glomerular Filt Rate 44 mL/min (>60); Glucose 113 mg/dL (70-99); HEMOLYSIS < 15 (0-50); Potassium 4.1 mmol/L (3.4-5.1); Sodium 136 mmol/L (137-145)
[2025-02-06] MEDS: SODIUM CHLORIDE 0.9% 1,000 ML 100 ML IV (08:18)
[2025-02-06] MEDS: HEPARIN 5,000 UNIT/ML VIAL 5000 UNIT SUBCUT (08:19)
--- NOTE | 2025-02-06 10:30 | PM.DS.1 ---
History of Present Illness History of Present Illness Date Patient Seen: 02/06/25 Time Patient Seen: 10:30 Chief complaint: lightheaded, sob, sent by [place] Narrative: 59-year-old male with past medical history of hypertension, hyperlipidemia, psoriasis and former tobacco abuse presents with complaint of shortness of breath. Per the patient's report, the patient started to notice increased shortness of breath with a dry cough that started about a week ago. The patient also has some light headedness with his cough and shortness of breath but denies any focal weakness. The patient states that he noticed his urine is darker and that he admits to not be drinking enough fluid. The patient otherwise denies any hematuria, dysuria, fever, chills, nausea, vomiting, diarrhea, chest pain, shortness of breath or syncope. The patient also denies any leg swelling or abdominal pain. The patient denies any known history of kidney disease or diabetes. In our emergency room, the patient was hemodynamically stable. However labs shows a creatinine of 4.15. WBC was 18,000. UA however was negative and normal. Chest x-ray was also clear. The patient was saturating very well on room air without any respiratory distress per ER physician. CT abdomen and pelvic shows no signs of hydronephrosis or renal stones. The patient was still making urine in our ER. After 1 L of fluid repeat creatinine was 2.8. Lactic acid is normal at 1.5. Viral respiratory panel were negative. Due to improvement of creatinine renal function after IV fluid our ER physician requested for admission. Discharge Providers Provider Date of admission: 02/05/25 20:56 Discharge Date: 02/06/25 Primary care physician: EVANGELINA Mendosa Discharge provider: Diaz Fletcher DO Summary Hospital Course Discharge Diagnosis: HI, improving, POA Leukocytosis, POA. improved Hypertension chronic Hyperlipidemia chronic Hospital Course: This is a 59 year old male with PMH of HTN and HLD who presented to the emergency room with complaints of dyspnea and lightheadedness. In further discussion with the patient, he described more becoming easily fatigued rather than true dyspnea. He had just restarted his home antihypertensives after being off of these for a while with his PCP. In the ER, initial Cr was >4. He was initially recommended for transfer but then admitted with improving Cr after IV fluids. His creatinine continued to improve to under 2 the following morning (1.76). He had no symptoms of dyspnea, dizziness, or fatigue. He was eating and tolerating a diet. Given presentation, suspect that he was overtreated for HTN with two agents including karla inhibition and diuretic (HCTZ). Both of these medications were held on admission. His BP was still soft the following morning but he was asymptomatic. We discussed continued observation off fluids vs discharge home, and the patient elected for discharge home. His Cr improved much more quickly than anticipated with IV fluids. I instructed the patient to continue to hold home antihypertensives, but continue to monitor his BP. Should it be consistently high recommended restarting 1/2 tab (20 mg) of lisinopril daily to see response. Recommend continued follow up with PCP in the next few weeks to repeat BMP to check his cr and assess antihypertensive needs at that time. Time Spent with Patient Time spent: Greater than 30 minutes Exam Vital Signs (past 8 hours): - 02/06/25 04:00 Temperature 97.6 F Pulse Rate 65 Respiratory Rate 16 Blood Pressure 112/64 Pulse Oximetry 100 Oxygen Flow Rate 0 Oxygen Delivery Method Room Air Oxygen Flow Rate 0 Narrative Exam Narrative: Physical Exam: GENERAL: The patient is not in any acute distressed. Awake and alert. HEENT: Nonicteric sclerae, PERRLA, EOMI. Oropharynx clear. Moist mucous membranes. Conjunctivae appear well perfused. HEART: Regular rate and rhythm without murmurs. No lower extremities edema. LUNGS: Clear to auscultation bilaterally. No wheezing, crackles or rhonchi ABDOMEN: Soft, positive bowel sounds, nontender. SKIN: No rash, no excessive bruising, petechiae, or purpura. NEUROLOGIC: AxO x 3. Cranial nerves II-XII intact without motor/sensory deficit. Objective Labs 02/06/25 05:50 02/06/25 05:50 Labs: Laboratory Results - last 24 hr 02/05/25 02/05/25 02/05/25 12:18 14:10 14:30 WBC 18.2 H RBC 3.98 L Hgb 14.0 Hct 39.5 L MCV 99.1 MCH 35.1 H MCHC 35.5 RDW 12.6 Plt Count 197 Neut % (Auto) 87.6 H Lymph % (Auto) 6.3 L [place] % (Auto) 5.8 Eos % (Auto) 0.0 L Baso % (Auto) 0.3 Neut # (Auto) 25459 H Lymph # (Auto) 1100 [place] # (Auto) 1100 H Eos # (Auto) 0 Baso # (Auto) 100 PT 10.6 INR 0.9 Sodium 127 L Potassium 4.8 Chloride 93 L Carbon Dioxide 20 L BUN 65 H Creatinine 4.15 H Estimated GFR 16 L BUN/Creatinine Ratio 15.7 Glucose 142 H Lactate 1.5 Calcium 9.2 Total Bilirubin 1.7 H AST 33 ALT 36 Alkaline Phosphatase 66 Total Creatine Kinase 44 L Troponin I < 0.012 NT-Pro-B Natriuret Pep 162 H Total Protein 7.7 Albumin 4.8 Globulin 2.9 Albumin/Globulin Ratio 1.7 Lipase 180 Procalcitonin 0.246 Urine RBC 0-1/hpf Urine WBC None seen Ur Squamous Epith Cells 0-1 /hpf Urine Bacteria None seen Ur Culture Indicated? Cult not indicated Vol Urine Centrifuged 10ml (spun) SARS-CoV-2 (PCR) Negative Influenza A (RT-PCR) Flu a negative Influenza B (RT-PCR) Flu b negative RSV (PCR) Negative 02/05/25 02/06/25 18:50 05:50 WBC 5.3 D RBC 3.36 L Hgb 12.1 L Hct 34.0 L MCV 101.1 H MCH 35.9 H MCHC 35.5 RDW 12.7 Plt Count 137 L Neut % (Auto) 60.8 D Lymph % (Auto) 29.5 D Kim[place] % (Auto) 7.9 Eos % (Auto) 1.2 L Baso % (Auto) 0.6 Neut # (Auto) 3200 Lymph # (Auto) 1600 [place] # (Auto) 400 Eos # (Auto) 100 Baso # (Auto) 0 PT INR Sodium 136 L Potassium 4.1 Chloride 105 Carbon Dioxide 23 BUN 57 H 46 H Creatinine 2.86 H 1.76 H Estimated GFR 24 L 44 L BUN/Creatinine Ratio 19.9 26.1 H Glucose 113 H Lactate Calcium 8.5 Total Bilirubin AST ALT Alkaline Phosphatase Total Creatine Kinase Troponin I NT-Pro-B Natriuret Pep Total Protein Albumin Globulin Albumin/Globulin Ratio Lipase Procalcitonin Urine RBC Urine WBC Ur Squamous Epith Cells Urine Bacteria Ur Culture Indicated? Vol Urine Centrifuged SARS-CoV-2 (PCR) Influenza A (RT-PCR) Influenza B (RT-PCR) RSV (PCR) PFS Social History household members: none Smoking Status: Former smoker Discharge Plan Discharge Plan Patient Disposition: Home Provider Discharge Comment: You were admitted to the hospital with an acute kidney injury, likely due to low BP and dehydration. For now stop all BP medications. If your BP at home is >140 (top number), restart 1/2 tab of lisinopril (20 mg). Follow up with PCP as previously scheduled, recommend calling them to do hospital follow up in the near future (1-2 weeks). Discharge orders & Medications Prescriptions: Discontinued hydrochlorothiazide 12.5 mg tablet 12.5 mg PO DAILY lisinopril 40 mg tablet 40 mg PO DAILY Follow up/Referrals: Leona Putnam ARNP [Primary Care Provider] - 1 Week Diet/Activity/Treatments Diet: Diet as Tolerated and Regular Activity: As tolerated, no restrictions. Visit Report/Discharge Packet Stand Alone Forms: Patient Portal/API, Stroke Signs & Symptoms Discharge Data Primary Care Provider: Leona Putnam
--- NOTE | 2025-02-06 11:14 | CM.DANOTE ---
Initial DCP Assessment Visit Note Reviewed EMR and team rounds for pt's medical status and updates. Went to meet with pt at bedside to introduce self and role, however he was found to be sleeping. Pt lives alone and independently in his own home in [place]. He does not use an AD at baseline, has supportive local friends and a sister as primary family support. He has been medically cleared for d/c home today. He has a friend who will be transporting hime. No CM d/c assistance needs are identified at this time. Payor: Delio GRAFF PCP: Leona Putnam Pt is a 59 year-old M who presented to the ED last evening with c/o cough, dizziness, SOB w/exertion that has continued for the last week. He was found to have an HI, however he continued to improve with fluids over the course of the night. Today he is medically stable and back to baseline. No further DCP needs identified at this time. Pt will likely d/c home after lunch today. Discharge Planning/Care Management CM Discharge Assessment Start: 02/06/25 11:12 Freq: Status: Active Protocol: Document 02/06/25 11:13 DPL (Rec: 02/06/25 11:14 DPL [id number]) Discharge Planning Assessment Assigned [employer] CORNELIO Buckley Advance Directives? No History Provided By Medical Record Expected Length of Stay 1 Has Patient been admitted in last 30 No days? Prior Living Arrangements House Household Members none Type of transporation used prior to Drives own vehicle admit Independent with ADL's Yes Is patient alert and oriented? Yes Comment N/A Caregiver for Another No Comment N/A Comment No identified home d/c needs at this time. Barriers to Discharge No Discharge Plan Home Referrals Initiated None needed Whiteboard Updated in Patient Room with Yes name and ext. # of [employer] Review Status In Process Please Provide Date Initial DC 02/06/25 Assessment Was Performed
[2025-02-06 11:40] VITALS: BP 108/68; PULSE 59; RESP 16; TEMP 36.7; O2SAT 100
--- NOTE | 2025-02-06 14:59 | PC.NURSE ---
Patient is A&OX4, VSS, afebrile and he ambulates with steady gait independently with IV pole in the room. He denies n/v, dizziness, pain, ARENAS, SOB or any other symptoms and reports feeling much better He tolerates breakfast well, and showers. MD at bedside reviewing lab work and evaluating patient. He is medically cleared for discharge home today and verbalizes understanding regarding parameters for lisinopril and discontinuing other BP medication as well as following up with PCP in x1 week. He is escorted by RN to private vehicle with friend to transport him home today at approximately 1420.
== END 2025-02-06 14:20 | disposition home or self-care (01) ==
LOC: ED 20:54 → AC 22:03
PROVIDERS: Family Medicine; Admitting Provider Internal Medicine; Emergency Provider Emergency Medicine; PCP Nurse Practitioner Acute Care; Referring Provider Emergency Medicine; Visit Provider Internal Medicine
DX: N17.9 Acute kidney failure, unspecified (principal); R42 Dizziness and giddiness; E86.0 Dehydration; D72.829 Elevated white blood cell count, unspecified; I10 Essential (primary) hypertension; E78.5 Hyperlipidemia, unspecified; L40.9 Psoriasis, unspecified; Z87.891 Personal history of nicotine dependence
CPT/HCPCS: 0241U; 36415; 71045; 74176; 80048; 80053; 81003; 81015; 82550; 82565; 83605; 83690; 83880; 84145; 84484; 84520; 85025; 85610; 87040; 93005; 96360; 96361; 96372; 99284; G0378; J1644